=== PATIENT | male | born 1955 | race Caucasian/White ===

== ENCOUNTER → 2017-04-27 | Outpatient (CLI) | payer OTHER ==
[~2017-04-27] MED LIST: ASPIRIN 81MG TA81 MG PO; AUGMENTIN 875 M1 TAB PO; LORTAB 5/500 501 TAB PO; SULFA PO
[2017-04-27 09:20] LABS: LYMPH # 1.1 K/mm3 (0.7-4.5)
[2017-04-27 09:27] LABS: HEMOGLOBIN 15.6 g/dL (14.1-18.0)
[2017-04-27 10:32] LABS: BUN 12 mg/dL (7-18)
[2017-04-27 10:54] LABS: GFR (ESTIMATED) 86 ML/MIN (>60)
== END ==
LOC: LAB 08:47
PROVIDERS: Internal Medicine Adolescent Medicine
DX: E78.2 Mixed hyperlipidemia (principal); G25.81 Restless legs syndrome